=== PATIENT | female | born 1990 | race Caucasian/White ===

== ENCOUNTER 2017-01-16 14:42 | Outpatient (RCR) | payer MEDICAID ==
--- OUTSIDE RECORDS SUMMARY | 2016-10-24 14:39 | XMS REPORT | Continuity of Care Document ---
Author Author [facility] Organization [facility] Address Unknown Phone Unavailable Care Team Providers Care Linux Engineer Name Role Phone Chris Arnold PCP [phone] Source Comments Some departments are not documenting in the electronic medical record. If you do not see the information that you expected, contact Release of Information in the Health Information Management department at [phone] for further assistance in locating additional records.[facility] Active Allergies and Adverse Reactions No Known Allergies Current Medications Prescription Sig. Disp. Refills Start End Date Status Date melatonin 3 mg tab Take 3 mg by mouth at Active bedtime daily. senna (SENOKOT) 8.6 mg Take 2 Tabs by mouth at Active tablet bedtime daily. docusate (COLACE) 100 mg Take 100 mg by mouth Active capsule twice daily. LORazepam (ATIVAN) 1 mg Take 1 mg by mouth twice Active tablet daily as needed for Other... (anxiety). 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 MRI, LP, EEG normal. 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 Leukopenia 04/29/2015 Hypokalemia 02/05/2015 History of peripheral stem cell transplant ([facility]) 01/05/2015 Overview: Transplant History: Date of Transplant:01/05/14 Preparative Regimen: BEAM Reduced or fully ablative:ablative Disease:Peripheral T-cell Lymphoblastic Leukemia IV Disease Status at Transplant: CR 1 CMV:NEG Cell Source:auto PBSC Consents/Studies:8322, auto, treatment ICD10 Conversion ran by Cali Osborne At risk for fertility problems 12/25/2014 Anxiety state, unspecified 12/18/2014 DVT (deep venous thrombosis) ([facility]) 10/09/2014 Fatigue 09/30/2014 Pancytopenia due to chemotherapy ([facility]) 09/30/2014 Pericardial effusion 09/01/2014 Pleural effusion 08/31/2014 T lymphoblastic lymphoma ([facility]) 08/30/2014 Resolved Problems Problem Noted Date Resolved Date Seizure ([facility]) 07/14/2015 07/15/2015 Seizures ([facility]) 07/14/2015 07/15/2015 Neutropenic fever (HCC) 02/03/2015 02/12/2015 Thrombocytopenia 01/18/2015 01/27/2015 Mucositis (ulcerative) due to antineoplastic therapy 01/12/2015 01/27/2015 Hypokalemia 01/12/2015 01/27/2015 Nausea & vomiting 01/06/2015 01/27/2015 Hyponatremia 01/06/2015 01/27/2015 Hypotension 01/06/2015 01/27/2015 Conditioning chemotherapy prior to peripheral blood stem cell transplant 10/201501/06/2015 Constipation 01/01/2015 01/27/2015 On antineoplastic chemotherapy 12/29/2014 01/06/2015 Constipation 12/16/2014 12/29/2014 Nausea and vomiting 12/16/2014 12/29/2014 Neutropenic fever ([facility]) 12/08/2014 12/29/2014 Chest pain on respiration 12/07/2014 12/29/2014 Headache, post-lumbar puncture 12/06/2014 12/29/2014 ALL (acute lymphoblastic leukemia) ([facility]) 10/13/2014 10/22/2014 Hypokalemia 09/30/2014 01/06/2015 Lymphoblastic lymphoma ([facility]) 09/23/2014 10/02/2014 Hypoalbuminemia 09/01/2014 01/27/2015 Electrolyte disturbance 09/01/2014 01/27/2015 T lymphoblastic lymphoma ([facility]) 09/01/2014 10/02/2014 Respiratory failure ([facility]) 08/30/2014 09/30/2014 Acute respiratory failure ([facility]) 08/30/2014 09/30/2014 Anemia 08/30/2014 10/02/2014 Immunizations Name Dates Previously Given Next Due Acthib Vaccine 11/27/2015, 09/24/2015, 07/02/2015 Flu Vaccine 09/22/2014 Quadrivalent=>3 Yo (Preservative Free) HPV Vaccine 4 Valent IM 01/28/2016, 09/24/2015, 07/02/2015 (Gardasil) Hepatitis A vaccine Adult 07/02/2015 IM Hepatitis B Vaccine Adult 01/28/2016, 09/24/2015, 07/02/2015 3 Dose IM IPV 11/27/2015, 09/24/2015, 07/02/2015 Meningococcal Conjug 07/02/2015 Vaccine Pneumococcal Vaccine 01/28/2016 (23-[facility] Adult) Pneumococcal 11/27/2015, 09/24/2015, 07/02/2015 Vaccine(13-[facility] Peds/immunocompromised adult) Tdap Vaccine 11/27/2015, 09/24/2015, 07/02/2015 Social History Tobacco Use Types Packs/Day Years Used Date Former Smoker Cigarettes Quit: 06/27/2014 Smokeless Tobacco: Never Used Alcohol Use Drinks/Week oz/Week Comments Yes socially Last Filed Vital Signs Vital Sign Reading Time Taken Blood Pressure 99/71 01/28/2016 2:21 PM CREDIT OFFICER Pulse 117 01/28/2016 2:21 PM CREDIT OFFICER Temperature 36.4 C (97.5 F) 01/28/2016 2:21 PM CREDIT OFFICER Respiratory Rate 18 01/28/2016 2:21 PM CREDIT OFFICER Height 1.549 m (5' 0.98") 01/28/2016 2:21 PM CREDIT OFFICER Weight 54.3 kg (119 lb 11.4 oz) 01/28/2016 2:21 PM CREDIT OFFICER Body Mass Index 22.63 01/28/2016 2:21 PM CREDIT OFFICER Oxygen Saturation 100% 01/28/2016 2:21 PM CREDIT OFFICER Plan of Care Health Maintenance Due Date Last Done Comments Physical (Comprehensive) 1996 Exam Cervical Cancer Screening 2010 Influenza Vaccine 07/21/2016 09/22/2014 Tetanus Vaccine 11/27/2025 11/27/2015, 09/24/2015, 07/02/2015 Pertussis Vaccine Completed 11/27/2015, 09/24/2015, 07/02/2015 Results from Last 3 Months Not on file
[2016-10-24 15:08] LABS: BASOPHILS % (AUTO) 1 % (0-10); EOSINOPHILS % (AUTO) 1 % (0-10); LYMPHOCYTES # (AUTO) 1.6 X 10^3 (1.0-4.0); LYMPHOCYTES % (AUTO) 37 % (12-44); MEAN CORPUSCULAR HEMOGLOBIN 34 PG (25-34); MEAN CORPUSCULAR HGB CONC 33 G/DL (32-36); MEAN CORPUSCULAR VOLUME 102 FL (80-99); MEAN PLATELET VOLUME 9.4 FL (7.4-10.4); MONOCYTES # (AUTO) 0.8 X 10^3 (0.0-1.0); MONOCYTES % (AUTO) 18 % (0-12); NEUTROPHILS # (AUTO) 1.9 X 10^3 (1.8-7.8); NEUTROPHILS % (AUTO) 43 % (42-75); PLATELET COUNT 211 10^3/uL (130-400); RED BLOOD COUNT 3.83 10^6/uL (4.35-5.85); RED CELL DISTRIBUTION WIDTH 13.2 % (10.0-14.5); WHITE BLOOD COUNT 4.3 10^3/uL (4.3-11.0)
[2016-10-24 15:52] LABS: ALANINE AMINOTRANSFERASE 18 U/L (0-55); ALBUMIN 4.3 G/DL (3.2-4.5); ANION GAP 9 MMOL/L (5-14); ASPARTATE AMINO TRANSFERASE 21 U/L (5-34); BILIRUBIN,TOTAL 0.3 MG/DL (0.1-1.0); BLOOD UREA NITROGEN 9 MG/DL (7-18); BUN/CREATININE RATIO 14; CARBON DIOXIDE 23 MMOL/L (21-32); CHLORIDE 108 MMOL/L (98-107); CREATININE SERUM 0.65 MG/DL (0.60-1.30); GFR ESTIMATED > 60; GLUCOSE 93 MG/DL (70-105); LACTATE DEHYDROGENASE 202 U/L (125-220); POTASSIUM 4.4 MMOL/L (3.6-5.0); SODIUM 140 MMOL/L (135-145); TOTAL PROTEIN 5.9 G/DL (6.4-8.2)
[~2017-01-16 14:42] MED LIST: ACYC400T21 PO; ACYC800T PO; CEFD300C PO; CEFD300C3 PO; CIPR500T4 PO; DOCU100T7 PO; Dronabinol PO; FLUC100T PO; HYDR-1231 PO; HYDR-3714 PO; LORA-794 PO; LORA0.5T PO; LORA0.5T34 GT; LORA0.5T34 PO; NITR-65 PO; ONDA8TAB2 PO; PHEN100T17 PO; PHEN200T27 PO; POTA-51 PO; POTA20TA15 PO; SENN-20 PO; SULF-222 PO; SULF1TAB7 PO; TRAM50TA2 PO
[2017-01-16 14:55] LABS: BASOPHILS % (AUTO) 1 % (0-10); EOSINOPHILS # (AUTO) 0.1 10^3/uL (0.0-0.3); EOSINOPHILS % (AUTO) 1 % (0-10); LYMPHOCYTES # (AUTO) 2.2 X 10^3 (1.0-4.0); LYMPHOCYTES % (AUTO) 40 % (12-44); MEAN CORPUSCULAR HEMOGLOBIN 34 PG (25-34); MEAN CORPUSCULAR HGB CONC 34 G/DL (32-36); MEAN CORPUSCULAR VOLUME 101 FL (80-99); MEAN PLATELET VOLUME 8.4 FL (7.4-10.4); MONOCYTES % (AUTO) 18 % (0-12); NEUTROPHILS # (AUTO) 2.2 X 10^3 (1.8-7.8); NEUTROPHILS % (AUTO) 40 % (42-75); PLATELET COUNT 229 10^3/uL (130-400); RED BLOOD COUNT 3.82 10^6/uL (4.35-5.85); RED CELL DISTRIBUTION WIDTH 12.8 % (10.0-14.5); WHITE BLOOD COUNT 5.4 10^3/uL (4.3-11.0)
[2017-01-16 15:44] LABS: ALANINE AMINOTRANSFERASE 25 U/L (0-55); ALBUMIN 4.5 G/DL (3.2-4.5); ANION GAP 13 MMOL/L (5-14); ASPARTATE AMINO TRANSFERASE 19 U/L (5-34); BILIRUBIN,TOTAL 0.3 MG/DL (0.1-1.0); BLOOD UREA NITROGEN 7 MG/DL (7-18); BUN/CREATININE RATIO 11; CALCIUM 9.3 MG/DL (8.5-10.1); CARBON DIOXIDE 24 MMOL/L (21-32); CHLORIDE 101 MMOL/L (98-107); CREATININE SERUM 0.66 MG/DL (0.60-1.30); GFR ESTIMATED > 60; GLUCOSE 80 MG/DL (70-105); LACTATE DEHYDROGENASE 244 U/L (125-220); POTASSIUM 3.7 MMOL/L (3.6-5.0); SODIUM 138 MMOL/L (135-145); TOTAL PROTEIN 6.5 G/DL (6.4-8.2)
== END 2017-01-22 | disposition home or self-care (01) ==
LOC: ONC 14:42
PROVIDERS: ATTEND Internal Medicine Hematology & Oncology
DX: C83.59 Lymphoblastic (diffuse) lymphoma, extranodal and solid organ sites (principal); F41.0 Panic disorder [episodic paroxysmal anxiety]; Z94.84 Stem cells transplant status; Z92.21 Personal history of antineoplastic chemotherapy
CPT/HCPCS: 36415; 80053; 83615; 85025; 99213

== ENCOUNTER 2017-04-18 14:42 | Outpatient (RCR) | payer MEDICARE, MEDICAID ==
[2017-04-18 15:09] LABS: BASOPHILS % (AUTO) 1 % (0-10); EOSINOPHILS # (AUTO) 0.1 10^3/uL (0.0-0.3); EOSINOPHILS % (AUTO) 1 % (0-10); LYMPHOCYTES # (AUTO) 1.7 X 10^3 (1.0-4.0); LYMPHOCYTES % (AUTO) 41 % (12-44); MEAN CORPUSCULAR HEMOGLOBIN 34 PG (25-34); MEAN CORPUSCULAR HGB CONC 34 G/DL (32-36); MEAN CORPUSCULAR VOLUME 102 FL (80-99); MEAN PLATELET VOLUME 8.7 FL (7.4-10.4); MONOCYTES # (AUTO) 0.7 X 10^3 (0.0-1.0); MONOCYTES % (AUTO) 17 % (0-12); NEUTROPHILS # (AUTO) 1.7 X 10^3 (1.8-7.8); NEUTROPHILS % (AUTO) 40 % (42-75); PLATELET COUNT 203 10^3/uL (130-400); RED BLOOD COUNT 3.97 10^6/uL (4.35-5.85); RED CELL DISTRIBUTION WIDTH 12.5 % (10.0-14.5); WHITE BLOOD COUNT 4.2 10^3/uL (4.3-11.0)
[2017-04-18 15:53] LABS: ALANINE AMINOTRANSFERASE 25 U/L (0-55); ALBUMIN 4.3 G/DL (3.2-4.5); ANION GAP 9 MMOL/L (5-14); ASPARTATE AMINO TRANSFERASE 19 U/L (5-34); BILIRUBIN,TOTAL 0.4 MG/DL (0.1-1.0); BLOOD UREA NITROGEN 5 MG/DL (7-18); BUN/CREATININE RATIO 7; CALCIUM 9.8 MG/DL (8.5-10.1); CARBON DIOXIDE 27 MMOL/L (21-32); CHLORIDE 106 MMOL/L (98-107); CREATININE SERUM 0.69 MG/DL (0.60-1.30); GFR ESTIMATED > 60; GLUCOSE 95 MG/DL (70-105); POTASSIUM 3.8 MMOL/L (3.6-5.0); SODIUM 142 MMOL/L (135-145); TOTAL PROTEIN 6.6 G/DL (6.4-8.2)
[2017-04-19 09:06] LABS: LACTATE DEHYDROGENASE 209 U/L (125-220)
== END 2017-07-17 | disposition home or self-care (01) ==
LOC: ONC 14:42
PROVIDERS: ATTEND Internal Medicine Hematology & Oncology
DX: C83.59 Lymphoblastic (diffuse) lymphoma, extranodal and solid organ sites (principal); F41.0 Panic disorder [episodic paroxysmal anxiety]; Z94.84 Stem cells transplant status; Z92.21 Personal history of antineoplastic chemotherapy
CPT/HCPCS: 36415; 80053; 83615; 85025; 99213

== ENCOUNTER 2017-07-20 14:32 | Outpatient (RCR) | payer MEDICARE, MEDICAID ==
[2017-07-20 15:05] LABS: BASOPHILS % (AUTO) 1 % (0-10); EOSINOPHILS # (AUTO) 0.1 10^3/uL (0.0-0.3); EOSINOPHILS % (AUTO) 1 % (0-10); LYMPHOCYTES # (AUTO) 2.4 X 10^3 (1.0-4.0); LYMPHOCYTES % (AUTO) 43 % (12-44); MEAN CORPUSCULAR HEMOGLOBIN 34 PG (25-34); MEAN CORPUSCULAR HGB CONC 34 G/DL (32-36); MEAN CORPUSCULAR VOLUME 100 FL (80-99); MEAN PLATELET VOLUME 9.8 FL (7.4-10.4); MONOCYTES # (AUTO) 0.9 X 10^3 (0.0-1.0); MONOCYTES % (AUTO) 17 % (0-12); NEUTROPHILS # (AUTO) 2.1 X 10^3 (1.8-7.8); NEUTROPHILS % (AUTO) 39 % (42-75); PLATELET COUNT 246 10^3/uL (130-400); RED BLOOD COUNT 3.92 10^6/uL (4.35-5.85); RED CELL DISTRIBUTION WIDTH 12.1 % (10.0-14.5); WHITE BLOOD COUNT 5.5 10^3/uL (4.3-11.0)
[2017-07-20 15:22] LABS: ALANINE AMINOTRANSFERASE 14 U/L (0-55); ALBUMIN 4.3 GM/DL (3.2-4.5); ANION GAP 9 MMOL/L (5-14); ASPARTATE AMINO TRANSFERASE 14 U/L (5-34); BILIRUBIN,TOTAL 0.4 MG/DL (0.1-1.0); BLOOD UREA NITROGEN 6 MG/DL (7-18); BUN/CREATININE RATIO 10; CALCIUM 9.2 MG/DL (8.5-10.1); CARBON DIOXIDE 23 MMOL/L (21-32); CHLORIDE 107 MMOL/L (98-107); CREATININE SERUM 0.62 MG/DL (0.60-1.30); GFR ESTIMATED > 60; GLUCOSE 88 MG/DL (70-105); LACTATE DEHYDROGENASE 148 U/L (125-220); POTASSIUM 3.7 MMOL/L (3.6-5.0); SODIUM 139 MMOL/L (135-145); TOTAL PROTEIN 6.2 GM/DL (6.4-8.2)
== END 2017-08-19 | disposition home or self-care (01) ==
LOC: ONC 14:32
PROVIDERS: ATTEND Internal Medicine Hematology & Oncology
DX: C83.59 Lymphoblastic (diffuse) lymphoma, extranodal and solid organ sites (principal); F41.0 Panic disorder [episodic paroxysmal anxiety]; Z94.84 Stem cells transplant status; Z92.21 Personal history of antineoplastic chemotherapy
CPT/HCPCS: 36415; 80053; 83615; 85025; 99213

== ENCOUNTER 2017-10-18 13:54 | Outpatient (RCR) | payer MEDICARE, MEDICAID ==
[2017-10-18 14:02] LABS: BASOPHILS # (AUTO) 0.1 10^3/uL (0.0-0.1); BASOPHILS % (AUTO) 1 % (0-10); EOSINOPHILS # (AUTO) 0.1 10^3/uL (0.0-0.3); EOSINOPHILS % (AUTO) 1 % (0-10); HEMATOCRIT 39 % (35-52); HEMOGLOBIN 13.4 G/DL (11.5-16.0); LYMPHOCYTES # (AUTO) 1.9 X 10^3 (1.0-4.0); LYMPHOCYTES % (AUTO) 37 % (12-44); MEAN CORPUSCULAR HEMOGLOBIN 34 PG (25-34); MEAN CORPUSCULAR HGB CONC 34 G/DL (32-36); MEAN CORPUSCULAR VOLUME 99 FL (80-99); MEAN PLATELET VOLUME 9.9 FL (7.4-10.4); MONOCYTES # (AUTO) 0.9 X 10^3 (0.0-1.0); MONOCYTES % (AUTO) 19 % (0-12); NEUTROPHILS % (AUTO) 41 % (42-75); PLATELET COUNT 249 10^3/uL (130-400); RED BLOOD COUNT 3.93 10^6/uL (4.35-5.85); RED CELL DISTRIBUTION WIDTH 12.6 % (10.0-14.5); WHITE BLOOD COUNT 4.9 10^3/uL (4.3-11.0)
[2017-10-18 14:23] LABS: ALANINE AMINOTRANSFERASE 14 U/L (0-55); ALBUMIN 4.3 GM/DL (3.2-4.5); ALKALINE PHOSPHATASE 92 U/L (40-136); BILIRUBIN,TOTAL 0.3 MG/DL (0.1-1.0); BUN/CREATININE RATIO 7; CALCIUM 9.6 MG/DL (8.5-10.1); CARBON DIOXIDE 26 MMOL/L (21-32); CHLORIDE 106 MMOL/L (98-107); CREATININE SERUM 0.67 MG/DL (0.60-1.30); GFR ESTIMATED > 60; GLUCOSE 102 MG/DL (70-105); POTASSIUM 4.2 MMOL/L (3.6-5.0); SODIUM 140 MMOL/L (135-145); TOTAL PROTEIN 6.7 GM/DL (6.4-8.2)
== END 2018-01-16 | disposition home or self-care (01) ==
LOC: ONC 13:54
PROVIDERS: ATTEND Internal Medicine Hematology & Oncology
DX: C83.59 Lymphoblastic (diffuse) lymphoma, extranodal and solid organ sites (principal); F41.0 Panic disorder [episodic paroxysmal anxiety]; Z94.84 Stem cells transplant status; Z92.21 Personal history of antineoplastic chemotherapy
CPT/HCPCS: 80053; 83615; 85025; 99213

== ENCOUNTER 2018-04-03 14:19 | Outpatient (RCR) | payer MEDICAID, MEDICARE ==
[2018-04-03 14:37] LABS: BASOPHILS % (AUTO) 1 % (0-10); EOSINOPHILS # (AUTO) 0.1 10^3/uL (0.0-0.3); EOSINOPHILS % (AUTO) 1 % (0-10); HEMATOCRIT 39 % (35-52); HEMOGLOBIN 13.4 G/DL (11.5-16.0); LYMPHOCYTES % (AUTO) 34 % (12-44); MEAN CORPUSCULAR HEMOGLOBIN 34 PG (25-34); MEAN CORPUSCULAR HGB CONC 35 G/DL (32-36); MEAN CORPUSCULAR VOLUME 97 FL (80-99); MEAN PLATELET VOLUME 9.6 FL (7.4-10.4); MONOCYTES # (AUTO) 0.9 X 10^3 (0.0-1.0); MONOCYTES % (AUTO) 16 % (0-12); NEUTROPHILS # (AUTO) 2.8 X 10^3 (1.8-7.8); NEUTROPHILS % (AUTO) 49 % (42-75); PLATELET COUNT 254 10^3/uL (130-400); RED CELL DISTRIBUTION WIDTH 12.6 % (10.0-14.5); WHITE BLOOD COUNT 5.8 10^3/uL (4.3-11.0)
[2018-04-03 14:53] LABS: ALANINE AMINOTRANSFERASE 13 U/L (0-55); ALBUMIN 4.5 GM/DL (3.2-4.5); ALKALINE PHOSPHATASE 72 U/L (40-136); BILIRUBIN,TOTAL 0.4 MG/DL (0.1-1.0); BUN/CREATININE RATIO 10; CALCIUM 9.5 MG/DL (8.5-10.1); CARBON DIOXIDE 21 MMOL/L (21-32); CHLORIDE 107 MMOL/L (98-107); GFR ESTIMATED > 60; GLUCOSE 99 MG/DL (70-105); POTASSIUM 3.9 MMOL/L (3.6-5.0); SODIUM 139 MMOL/L (135-145); TOTAL PROTEIN 6.5 GM/DL (6.4-8.2)
== END 2018-07-02 | disposition home or self-care (01) ==
LOC: ONC 14:19
PROVIDERS: ATTEND Internal Medicine Hematology & Oncology
DX: C83.59 Lymphoblastic (diffuse) lymphoma, extranodal and solid organ sites (principal); F41.0 Panic disorder [episodic paroxysmal anxiety]; Z94.84 Stem cells transplant status; Z92.21 Personal history of antineoplastic chemotherapy
CPT/HCPCS: 36415; 80053; 83615; 85025; 99213

== ENCOUNTER 2018-10-02 12:44 | Outpatient (RCR) | payer MEDICAID ==
[2018-10-02 15:07] LABS: BASOPHILS % (AUTO) 0 % (0-10); EOSINOPHILS % (AUTO) 1 % (0-10); HEMATOCRIT 39 % (35-52); HEMOGLOBIN 13.3 G/DL (11.5-16.0); LYMPHOCYTES # (AUTO) 1.9 X 10^3 (1.0-4.0); LYMPHOCYTES % (AUTO) 40 % (12-44); MEAN CORPUSCULAR HEMOGLOBIN 33 PG (25-34); MEAN CORPUSCULAR HGB CONC 34 G/DL (32-36); MEAN CORPUSCULAR VOLUME 97 FL (80-99); MEAN PLATELET VOLUME 9.4 FL (7.4-10.4); MONOCYTES # (AUTO) 0.9 X 10^3 (0.0-1.0); MONOCYTES % (AUTO) 18 % (0-12); NEUTROPHILS # (AUTO) 1.9 X 10^3 (1.8-7.8); NEUTROPHILS % (AUTO) 40 % (42-75); PLATELET COUNT 227 10^3/uL (130-400); RED CELL DISTRIBUTION WIDTH 12.6 % (10.0-14.5); WHITE BLOOD COUNT 4.7 10^3/uL (4.3-11.0)
[2018-10-02 15:29] LABS: ALANINE AMINOTRANSFERASE 11 U/L (0-55); ALBUMIN 4.6 GM/DL (3.2-4.5); ALKALINE PHOSPHATASE 60 U/L (40-136); BILIRUBIN,TOTAL 0.3 MG/DL (0.1-1.0); BUN/CREATININE RATIO 12; CALCIUM 9.8 MG/DL (8.5-10.1); CARBON DIOXIDE 23 MMOL/L (21-32); CHLORIDE 107 MMOL/L (98-107); CREATININE SERUM 0.67 MG/DL (0.60-1.30); GFR ESTIMATED > 60; GLUCOSE 89 MG/DL (70-105); POTASSIUM 3.4 MMOL/L (3.6-5.0); SODIUM 139 MMOL/L (135-145); TOTAL PROTEIN 6.5 GM/DL (6.4-8.2)
== END 2018-12-31 | disposition home or self-care (01) ==
LOC: ONC 12:44
PROVIDERS: ATTEND Internal Medicine Hematology & Oncology
DX: C83.59 Lymphoblastic (diffuse) lymphoma, extranodal and solid organ sites (principal); F41.0 Panic disorder [episodic paroxysmal anxiety]; Z94.81 Bone marrow transplant status; Z86.718 Personal history of other venous thrombosis and embolism; Z92.21 Personal history of antineoplastic chemotherapy
CPT/HCPCS: 36415; 80053; 83615; 85025; 99213